=== PATIENT | female | born 1950 ===

== ENCOUNTER → 2022-04-06 10:34 | Outpatient (CLI) | payer MEDICARE, SELFPAY ==
--- NOTE | 2022-04-06 | DI.NM.S_ITS ---
PROCEDURE: [place] BONE SCAN WHOLE BODY RADIOPHARMACEUTICAL: 20.4 mCi Tc-99m MDP IV. INDICATIONS: METASTATIC BREAST CANCER TECHNIQUE: Delayed whole-body scintigrams were obtained approximately 3-4 hours after intravenous injection of radiotracer. Anterior and posterior views were acquired from vertex to feet. COMPARISON: [place], [place], [place] PET CT FUSION SKULL 2 THIGH, 09/06/2021, 10:27. FINDINGS: No lesions are identified in skull, sternum, clavicles, scapulae, ribs, bony pelvis, and visualized shafts of the long bones. There is low level increased uptake in cervical, thoracic and lumbar spine with distribution indistinguishable from degenerative disc and facet disease; early metastasis to spine could be obscured by degenerative changes. There are foci of increased periarticular activity involving shoulders, wrists, hands, hips, knees, ankles and feet, compatible with degenerative/arthritic changes. Increased uptake in maxilla and mandible is noted, most likely related to dental disease. IMPRESSION: 1. No definitive scintigraphic findings to suggest osseous metastasis. Dictated by: Jessica Fitzpatrick M.D. on 04/06/2022 at 17:42 Approved by: Jessica Fitzpatrick M.D. on 04/06/2022 at 17:45
== END ==
PROVIDERS: PCP Internal Medicine; Referring Provider Internal Medicine; Visit Provider Internal Medicine
DX: C50.919 Malignant neoplasm of unspecified site of unspecified female breast (principal)
CPT/HCPCS: 78306; A9503